=== PATIENT | male | born 1940 | race Hispanic/Latino ===

== ENCOUNTER 2018-06-22 06:15 | Day surgery (SDC) | payer MEDICARE ==
[2018-06-14 16:31] VITALS: BMI 25.0
[2018-06-22] MEDS ORDERED: Propofol 10 mg/ml Inj (20 ML) ONE (07:51)
[2018-06-22] MEDS ORDERED: Lidocaine PF 2% (5 ml) Inj (For Cardiac Arrhy) ONE (07:51)
[2018-06-22] MEDS ORDERED: Sodium Chloride 0.9% 1,000 ML IV SCH (09:00)
[2018-06-22 09:16] VITALS: RESP 16
[2018-06-22 09:21] VITALS: PULSE 52; O2SAT 99
[2018-06-22 09:54] VITALS: BP 141/72; TEMP 97.6
== END 2018-06-22 10:25 | disposition home or self-care (01) ==
LOC: ENDO 06:15
PROVIDERS: ATTEND Specialist
DX: K29.40 Chronic atrophic gastritis without bleeding (principal); K21.9 Gastro-esophageal reflux disease without esophagitis; K44.9 Diaphragmatic hernia without obstruction or gangrene; Z12.11 Encounter for screening for malignant neoplasm of colon; K57.30 Diverticulosis of large intestine without perforation or abscess without bleeding; K64.8 Other hemorrhoids; K59.00 Constipation, unspecified
CPT/HCPCS: 43239; 45378; 88305; 88342; J2704; J7030